=== PATIENT | female | born 1940 | race Caucasian/White ===

== ENCOUNTER 2024-12-27 16:46 | Inpatient (IN) | payer MEDICARE, BC, SELFPAY ==
[2024-12-27] VITALS (8 sets, daily range): BP systolic 140–173; BP diastolic 74–113; BMI 29.1; BMI 28.7
--- NOTE | 2024-12-27 14:45 | ED.GENMED ---
History of Present Illness
<Tia Sandhu PA-C - Last Filed: 12/27/24 23:48>
General
Chief Complaint: Skin Problem
Source: patient
Exam Limitations: none
Time Seen by Provider: 12/27/24 13:06
Nursing documentation reviewed up to this point in time: agreed with
History of Present Illness
History of Present Illness:
Patient is an 84-year-old female with history hypertension and Alzheimer's who presents to the emergency department with daughter for evaluation of swelling and warmth of left lower extremity. Patient unable to contribute much to history given
history of Alzheimer's.
Patient's daughter states that her son, who lives with patient, contacted her today stating that the patient had swelling and redness of her left lower leg. It is unclear how long the symptoms have been present. Patient is relatively sedentary
however has been able to ambulate independently around home.
There is no history of fever or other infectious symptoms. Patient denies any current chest pain or shortness of breath. She denies any numbness/tingling in left lower extremity. She has no known trauma or injury to the area.
Patient lives in a single-family home with her grandson and son-in-law. The daughter does have concerns regarding patient safety at home as her ex- struggles with alcohol use.
Review of Systems
<Tia Sandhu PA-C - Last Filed: 12/27/24 23:48>
Review of Systems
Allergies reviewed?: Yes
All Other Systems: ROS reviewed and negative except as documented in HPI and ROS
Phy Exam
<Tia Sandhu PA-C - Last Filed: 12/27/24 23:48>
Physical Exam
Physical Exam:
Vitals: Hypertensive, otherwise vital signs stable. Afebrile
General: Patient is well appearing, no acute distress
Skin: Warm and dry, no rashes or lesions
Head: Normocephalic, atraumatic
Eyes: Sclera nonicteric. EOMs intact. No nystagmus.
Throat: Protecting airway
Neck: Normal ROM, no cervical spine tenderness, no meningismus
Cardiac: Regular rate and rhythm, no murmurs.
Pulm: Normal respiratory effort. Lungs clear bilaterally
Abdomen: No abdominal tenderness.
Extremities: Edema, warmth, and mild edema of left lower extremity. No focal areas of tenderness. 2+ palpable DP pulse
Neuro: AAOx2. No focal deficits.
Psychiatric: Normal affect.
Course
<Tia Sandhu PA-C - Last Filed: 12/27/24 23:48>
Orders/Labs/Results
Orders:
Orders
12/27/24 Lunch
Regular
At Your Request: Limited Participation
Does patient need a safe tray?: No
12/27/24 12:49
Periph Venous Lwr Ext Left US [US Periph Venous LOWER Ext LT] Urgent
Comment:
Reason For Exam: swelling
12/27/24 14:09
Case Management Consult ONCE
Case Management Consult: VN/Home Care
12/27/24 15:05
Heparin 6,700 units IV NOW STA
12/27/24 15:[address] Non Medication Order As Directed
Physician Order: PTT 6 hours after initial start of Heparin infusion
Above order entered?: Yes
12/27/24 15:13
Complete Blood Count/With Diff Urgent
12/27/24 15:15
Comprehensive Metabolic Panel Urgent
PTT Urgent
Comment: Obtain baseline before beginning heparin infusion if not already collected
Prothrombin Time Urgent
Comment: ADD ON
Heparin 44116 Units/250 ml 25,000 units in 250 ml IV PER PROTOCOL
Weight to be used for heparin protocol in kilograms (kg):: 84.1
Protocol:: DVT/PE
PTT Goal Range to be used:: PTT 73 to 111 seconds
Order type:: Initial
INITIAL Infusion Dose (UNITS/KG/hr) & then follow protocol:: 18 units/kg/hr
Infusion Dose in UNITS/hr & then follow protocol (UNITS/hr):: 1,500
INFUSION RATE in mL/hr & then follow protocol (mL/hr):: 15
For DVT/PE algorithm, re-bolus for low PTT?: Yes
PTT less than or equal to 64 seconds:: Re-bolus 80 units/kg (max 10,000units). Increase by 300 units/hr
(+ 3mL/hr)
PTT 64.1 to 72.9 seconds:: Re-bolus 40 units/kg (max 5,000 units). Increase by 200 units/hr
(+ 2mL/hr)
PTT 73 to 111 seconds:: Target Range. No change in rate.
PTT 111.1 to 130.9 seconds:: Decrease rate by 200 units/hr (- 2 mL/hr)
PTT 131 to 199.9 seconds:: HOLD for 1 hr. Then decrease by 300 units/hr (- 3mL/hr)
PTT greater than or equal to 200 seconds:: HOLD for 2 hrs & Notify Provider. Then decrease by 300 units/hr
(- 3mL/hr)
Lab follow-up:: Each change, PTT q6h until 2 consecutive are therapeutic. Then
PTT daily.
12/27/24 15:35
Heparin 3,400 units IV PRN PRN
Heparin 6,700 units IV PRN PRN
12/27/24 15:56
Vascular Surgery Consult Routine
Consulting Provider: Rick Christensen
Was physician already notified: Yes
Reason for consult: LLE extensive DVT
12/27/24 16:18
Admit/Transfer Patient As Directed
Co-Sign Provider:
Level of Care: Inpatient admission
Assign to:: Telemetry
Physician / Group: Kelly
Diagnosis: Acute DVT
Reason for Telemetry: Arrhythmia
Date to Stop Telemetry: 12/30/24
Time to Stop Telemetry: 11:00
Reason for Hospitalization: Acute DVT
Expected length of stay greater than two midnights?: Yes
ELOS- Estimated Length of Stay in days: 2
I certify the patient meets the requirements for IP care: Yes
PRN Pain Medication Management As Directed
May give lesser potent ordered pain med per pt: Yes
preference::
Protocol:: Medication orders for pain may be administered in a
manner that supports deferring to patient preference
when the pt is:
- Requesting an ordered lesser potent pain medication.
Least to most potent pain medications are defined
as: acetaminophen < NSAID < tramadol < opioids
(morphine, oxycodone, hydromorphone).
- Requesting a lesser dose of the same medication IF
ORDERED.
- Requesting a less intrusive route of administration
if both routes are prescribed by the provider (PO <
IV).
12/27/24 16:19
Code Status As Directed
Resuscitation Status: Do not resuscitate
Reached after discussion with pt or family/Healthcare POA: Yes
DNR Bracelet Application ONCE
12/27/24 16:21
Case Management Consult ONCE
Case Management Consult: VN/Home Care
12/27/24 16:25
Ot Eval And Treat Routine
Pt Eval And Treat Routine
Activity Level: Out of Bed-Early Mobility
12/27/24 16:26
Add On- LAB Urgent
Tests Added?: INR
12/27/24 16:27
EKG [Electrocardiogram (*1)] Stat
Reason for Study: Tachycardia
12/27/24 18:48
Acetaminophen [Tylenol] 650 mg PO Q4HPRN PRN
Bisacodyl [Dulcolax] 10 mg RECTAL [id number] PRN
Docusate W/Senna [Senokot-S] 1 tablet PO BIDPRN PRN
Metoprolol Xl [Toprol Xl] 25 mg PO QPM
Ondansetron Injectable [Zofran] 4 mg IV Q8HPRN PRN
Polyethylene Glycol Powder [Miralax] 17 grams PO DAILYPRN PRN
12/27/24 18:48
Heparin Protocol- PTT Orders As Directed
PTT per Heparin protocol: -Obtain CBC and baseline PTT - if not already collected.
-Obtain PTT 6 hours from start of infusion. Then, every 6 hours until 2 consecutive
PTT's are therapeutic. Then, PTT Daily.
-With each rate change, obtain PTT every 6 hours until 2 consecutive PTT's are
therapeutic. Then, PTT Daily.
Activity As Directed
Activity Level: Out of Bed-Early Mobility
Notify MD As Directed
Notify physician if: PTT is greater than or equal to 200.
Vital Signs As Directed
Frequency: Per unit guidelines
CR Chest Portable - 1 View Routine
Comment:
Reason For Exam: intermittent SOB
Reason Study Needs to be Portable: Other
12/28/24 06:00
Electrocardiogram (*1) IN AM
Reason for Study: Palpitations
TSH Reflex To Free T4 IN AM
12/28/24 08:00
Escitalopram Oxalate [Lexapro] 5 mg PO DAILY
12/29/24 06:00
Complete Blood Count/No Diff Q2D
Comment: notify provider: Platelet count < 130,000 or decrease by 50% from baseline
12/30/24 11:00
DC Protocol for Telemetry ONCE
12/31/24 06:00
Complete Blood Count/No Diff Q2D
Comment: notify provider: Platelet count < 130,000 or decrease by 50% from baseline
01/02/25 06:00
Complete Blood Count/No Diff Q2D
Comment: notify provider: Platelet count < 130,000 or decrease by 50% from baseline
01/04/25 06:00
Complete Blood Count/No Diff Q2D
Comment: notify provider: Platelet count < 130,000 or decrease by 50% from baseline
01/06/25 06:00
Complete Blood Count/No Diff Q2D
Comment: notify provider: Platelet count < 130,000 or decrease by 50% from baseline
01/08/25 06:00
Complete Blood Count/No Diff Q2D
Comment: notify provider: Platelet count < 130,000 or decrease by 50% from baseline
01/10/25 06:00
Complete Blood Count/No Diff Q2D
Comment: notify provider: Platelet count < 130,000 or decrease by 50% from baseline
01/12/25 06:00
Complete Blood Count/No Diff Q2D
Comment: notify provider: Platelet count < 130,000 or decrease by 50% from baseline
Abnormal Lab Results
12/27/24 12/27/24
15:13 15:15
MCHC 32.6 L g/dL
(33.0-37.0)
MPV 10.7 H fL
(7.4-10.4)
Absolute Monos (auto) 0.7 H 10^3/uL
(0.1-0.6)
Monocytes % 12.2 H %
(1.7-9.3)
Carbon Dioxide 31 H mmol/L
(22-30)
Glucose 109 H mg/dl
(70-99)
12/27/24 15:13
12/27/24 15:15
Vital Signs
Pulse: 82
Initial and Last Documented VS:
Initial Vital Signs
Temp Pulse Resp BP Pulse Ox
97.9 F 104 18 167/74 98
12/27/24 12:13 12/27/24 12:13 12/27/24 12:13 12/27/24 12:13 12/27/24 12:13
Last Documented Vital Signs
Temp Pulse Resp BP Pulse Ox
98.1 F 89 18 172/84 96
12/27/24 23:17 12/27/24 23:17 12/27/24 23:17 12/27/24 23:17 12/27/24 23:17
<Chandler Castle, DO - Last Filed: 12/27/24 14:52>
Orders/Labs/Results
Orders:
Orders
12/27/24 Lunch
Regular
At Your Request: Limited Participation
Does patient need a safe tray?: No
12/27/24 12:49
Periph Venous Lwr Ext Left US [US Periph Venous LOWER Ext LT] Urgent
Comment:
Reason For Exam: swelling
12/27/24 14:09
Case Management Consult ONCE
Case Management Consult: VN/Home Care
12/27/24 15:05
Heparin 6,700 units IV NOW STA
12/27/24 15:[address] Non Medication Order As Directed
Physician Order: PTT 6 hours after initial start of Heparin infusion
Above order entered?: Yes
12/27/24 15:13
Complete Blood Count/With Diff Urgent
12/27/24 15:15
Comprehensive Metabolic Panel Urgent
PTT Urgent
Comment: Obtain baseline before beginning heparin infusion if not already collected
Prothrombin Time Urgent
Comment: ADD ON
Heparin 56340 Units/250 ml 25,000 units in 250 ml IV PER PROTOCOL
Weight to be used for heparin protocol in kilograms (kg):: 84.1
Protocol:: DVT/PE
PTT Goal Range to be used:: PTT 73 to 111 seconds
Order type:: Initial
INITIAL Infusion Dose (UNITS/KG/hr) & then follow protocol:: 18 units/kg/hr
Infusion Dose in UNITS/hr & then follow protocol (UNITS/hr):: 1,500
INFUSION RATE in mL/hr & then follow protocol (mL/hr):: 15
For DVT/PE algorithm, re-bolus for low PTT?: Yes
PTT less than or equal to 64 seconds:: Re-bolus 80 units/kg (max 10,000units). Increase by 300 units/hr
(+ 3mL/hr)
PTT 64.1 to 72.9 seconds:: Re-bolus 40 units/kg (max 5,000 units). Increase by 200 units/hr
(+ 2mL/hr)
PTT 73 to 111 seconds:: Target Range. No change in rate.
PTT 111.1 to 130.9 seconds:: Decrease rate by 200 units/hr (- 2 mL/hr)
PTT 131 to 199.9 seconds:: HOLD for 1 hr. Then decrease by 300 units/hr (- 3mL/hr)
PTT greater than or equal to 200 seconds:: HOLD for 2 hrs & Notify Provider. Then decrease by 300 units/hr
(- 3mL/hr)
Lab follow-up:: Each change, PTT q6h until 2 consecutive are therapeutic. Then
PTT daily.
12/27/24 15:35
Heparin 3,400 units IV PRN PRN
Heparin 6,700 units IV PRN PRN
12/27/24 15:56
Vascular Surgery Consult Routine
Consulting Provider: Rick Christensen
Was physician already notified: Yes
Reason for consult: LLE extensive DVT
12/27/24 16:18
Admit/Transfer Patient As Directed
Co-Sign Provider:
Level of Care: Inpatient admission
Assign to:: Telemetry
Physician / Group: Kelly
Diagnosis: Acute DVT
Reason for Telemetry: Arrhythmia
Date to Stop Telemetry: 12/30/24
Time to Stop Telemetry: 11:00
Reason for Hospitalization: Acute DVT
Expected length of stay greater than two midnights?: Yes
ELOS- Estimated Length of Stay in days: 2
I certify the patient meets the requirements for IP care: Yes
PRN Pain Medication Management As Directed
May give lesser potent ordered pain med per pt: Yes
preference::
Protocol:: Medication orders for pain may be administered in a
manner that supports deferring to patient preference
when the pt is:
- Requesting an ordered lesser potent pain medication.
Least to most potent pain medications are defined
as: acetaminophen < NSAID < tramadol < opioids
(morphine, oxycodone, hydromorphone).
- Requesting a lesser dose of the same medication IF
ORDERED.
- Requesting a less intrusive route of administration
if both routes are prescribed by the provider (PO <
IV).
12/27/24 16:19
Code Status As Directed
Resuscitation Status: Do not resuscitate
Reached after discussion with pt or family/Healthcare POA: Yes
DNR Bracelet Application ONCE
12/27/24 16:21
Case Management Consult ONCE
Case Management Consult: VN/Home Care
12/27/24 16:25
Ot Eval And Treat Routine
Pt Eval And Treat Routine
Activity Level: Out of Bed-Early Mobility
12/27/24 16:26
Add On- LAB Urgent
Tests Added?: INR
12/27/24 16:27
EKG [Electrocardiogram (*1)] Stat
Reason for Study: Tachycardia
12/27/24 18:48
Acetaminophen [Tylenol] 650 mg PO Q4HPRN PRN
Bisacodyl [Dulcolax] 10 mg RECTAL [id number] PRN
Docusate W/Senna [Senokot-S] 1 tablet PO BIDPRN PRN
Metoprolol Xl [Toprol Xl] 25 mg PO QPM
Ondansetron Injectable [Zofran] 4 mg IV Q8HPRN PRN
Polyethylene Glycol Powder [Miralax] 17 grams PO DAILYPRN PRN
12/27/24 18:48
Heparin Protocol- PTT Orders As Directed
PTT per Heparin protocol: -Obtain CBC and baseline PTT - if not already collected.
-Obtain PTT 6 hours from start of infusion. Then, every 6 hours until 2 consecutive
PTT's are therapeutic. Then, PTT Daily.
-With each rate change, obtain PTT every 6 hours until 2 consecutive PTT's are
therapeutic. Then, PTT Daily.
Activity As Directed
Activity Level: Out of Bed-Early Mobility
Notify MD As Directed
Notify physician if: PTT is greater than or equal to 200.
Vital Signs As Directed
Frequency: Per unit guidelines
CR Chest Portable - 1 View Routine
Comment:
Reason For Exam: intermittent SOB
Reason Study Needs to be Portable: Other
12/28/24 06:00
Electrocardiogram (*1) IN AM
Reason for Study: Palpitations
TSH Reflex To Free T4 IN AM
12/28/24 08:00
Escitalopram Oxalate [Lexapro] 5 mg PO DAILY
12/29/24 06:00
Complete Blood Count/No Diff Q2D
Comment: notify provider: Platelet count < 130,000 or decrease by 50% from baseline
12/30/24 11:00
DC Protocol for Telemetry ONCE
12/31/24 06:00
Complete Blood Count/No Diff Q2D
Comment: notify provider: Platelet count < 130,000 or decrease by 50% from baseline
01/02/25 06:00
Complete Blood Count/No Diff Q2D
Comment: notify provider: Platelet count < 130,000 or decrease by 50% from baseline
01/04/25 06:00
Complete Blood Count/No Diff Q2D
Comment: notify provider: Platelet count < 130,000 or decrease by 50% from baseline
01/06/25 06:00
Complete Blood Count/No Diff Q2D
Comment: notify provider: Platelet count < 130,000 or decrease by 50% from baseline
01/08/25 06:00
Complete Blood Count/No Diff Q2D
Comment: notify provider: Platelet count < 130,000 or decrease by 50% from baseline
01/10/25 06:00
Complete Blood Count/No Diff Q2D
Comment: notify provider: Platelet count < 130,000 or decrease by 50% from baseline
01/12/25 06:00
Complete Blood Count/No Diff Q2D
Comment: notify provider: Platelet count < 130,000 or decrease by 50% from baseline
Abnormal Lab Results
12/27/24 12/27/24
15:13 15:15
MCHC 32.6 L g/dL
(33.0-37.0)
MPV 10.7 H fL
(7.4-10.4)
Absolute Monos (auto) 0.7 H 10^3/uL
(0.1-0.6)
Monocytes % 12.2 H %
(1.7-9.3)
Carbon Dioxide 31 H mmol/L
(22-30)
Glucose 109 H mg/dl
(70-99)
12/27/24 15:13
12/27/24 15:15
Vital Signs
Initial and Last Documented VS:
Initial Vital Signs
Temp Pulse Resp BP Pulse Ox
97.9 F 104 18 167/74 98
12/27/24 12:13 12/27/24 12:13 12/27/24 12:13 12/27/24 12:13 12/27/24 12:13
Last Documented Vital Signs
Temp Pulse Resp BP Pulse Ox
98.1 F 89 18 172/84 96
12/27/24 23:17 12/27/24 23:17 12/27/24 23:17 12/27/24 23:17 12/27/24 23:17
<Tia Sandhu PA-C - Last Filed: 12/27/24 23:48>
MDM/Problems Addressed
Differential Diagnosis Includes:
Not limited to: DVT, cellulitis, lymphedema, venous stasis, traumatic injury, etc.
MDM/Problems Addressed:
84-year-old female with left lower extremity pain/swelling. History of Alzheimer�s and poor historian � unclear duration of symptoms. No chest pain or shortness of breath. No fevers or other infectious symptoms.
Vitals stable.
On exam, patient appears in no distress. There is edema, warmth and minimal erythema of left lower extremity. Palpable distal pulses. Cardio/pulmonary exam unremarkable.
Differential includes DVT vs cellulitis. Will obtain basic lab work and ultrasound of left lower extremity.
Update: left lower extremity ultrasound reveals extensive DVT. There are also some safety concerns with patient at home, including fall risk. Given degree of clot burden, will admit patient for IV heparin. She may need CM consult pending discharge.
Patient admitted to hospitalist service in stable condition.
Chronic conditions affecting care:
Hypertension
Acute Exacerbation and/or Progression of Chronic Illness:
Acutely hypertensive
<Tia Sandhu PA-C - Last Filed: 12/27/24 23:48>
*Radiology
Radiology exam reviewed: radiology read reviewed
*Pulse Oximetry
SaO2: 98
Oxygen Mode of Delivery: Room air
Patient hypoxic: no
*EKG
Interpreted by ED Provider?: NA
*Mercury Recoverer Interpretation
Rate: Mercury Recoverer- N/A
*Critical Care Note
Total Time (30-74mins, 75-104mins- exclusive of procedures): 30
comment:
Critical care statement: A total of 30 minutes of critical care time was provided for this patient. This includes management of unstable vital signs, evaluation of the patient at bedside, reviewing the patient's pertinent medical records, discussion
with consultants, review of old EKGs and review of pertinent medical records. This time with separate from time utilized to perform the aforementioned documented procedures
<Tia Sandhu PA-C - Last Filed: 12/27/24 23:48>
Patient Management
Discussion with other providers: Hospitalist and Radiologist
ED Attending Note
<Tia Sandhu PA-C - Last Filed: 12/27/24 23:48>
-
Portions of this chart may have been created with voice recognition software.� Occasional wrong word or��sound alike� substitutions may have occurred due to the inherent limitations of voice recognition software.
<Chandler Castle DO - Last Filed: 12/27/24 14:52>
ED Attending Note
Patient seen and examined by attending physician: Yes
I performed the substantive portion of visit, reviewed & personally made and approve the management plan that is documented in note by myself or ONELIA.: Yes
ED Attending Note:
I have seen and evaluated the patient with a [id number] encounter. I have spoken to the advance practicer provider and involved in the medical history, the physical exam, medical decision making.
Evaluation and management service: agree unless noted differently below.
Results interpretation: agree unless noted differently below.
Focused HPI: 84-year-old female presenting with left leg swelling and pain. Is not certain when symptoms started. She does have dementia and is a poor historian
Physical exam: Sitting in bed comfortably. Left leg is mildly erythematous and edematous. Distal pulses intact
Medical Decision Making: Radiology indicating that there is significant amount of clot burden in the left leg. Patient is a fall risk and is a poor historian. Will start heparin
Discharge Plan
Departure
Patient Disposition: Admit
Date of Disposition: 12/27/24
Time of Disposition: 15:47
Presentation/result/management discussed w/ accepting MD/DO: Hospitalist
Discharge Problem:
Acute deep vein thrombosis (DVT) of left lower extremity
Interventions
Interventions:
*Risk Screen - Suicide Last Done: 12/27/24 22:28
*General Assessment Last Done: 12/27/24 15:16
*Neglect/Abuse Screening Last Done: 12/27/24 15:16
*ED- Fall Risk Assessment Last Done: 12/27/24 15:16
*ED COVID-19 Vaccine History Last Done: 12/27/24 22:28
*ED Influenza Vaccine History Last Done: 12/27/24 15:16
*Nursing Disposition Last Done: 12/27/24 18:37
ED-Skin Assessment Last Done: 12/27/24 15:00
Discharge Date and Time
Discharge Date/Time: 12/27/24 18:38
--- NOTE | 2024-12-27 14:46 | CM ---
Patient seen bedside w/ daughter in ED. Initial assessment completed. Came to ED for skin problem.
Patient resides w/ her grandson and ex son in law in a 5STH, 6 steps to enter from the outside. No steps from the garage entrance. Patient is independent w/ ambulation, no device required. Independent w/ ADLs and personal care. Denies SNF/HC hx.
Address, point of contact and insurance verified
PCP: Rodrigo Bush
Pharmacy: [facility]
Daughter stated she is interested in home PT for patient for her shoulder. Daughter stated she was looking into [facility] and was suppose to get a call back from them this week. CM explained home PT is usually a few times a week and insurance
typically covers home care services but unsure if patient will have a co pay or has limited visits per her insurance plan. Daughter understood this and agreeable to a referral to [facility].
Referral sent to [facility] in [facility]
Plan: Home w/ [facility]
[2024-12-27 15:26] LABS: Hematocrit 45.7 % (37.0-47.0); Hemoglobin 14.9 g/dL (12.0-16.0); Mean Corp Hgb Conc. 32.6 g/dL (33.0-37.0); Mean Corpuscular Volume 89.1 fL (81.0-99.0); Nucleated Red Blood Cells % 0 %; Platelet Count 201 10^3/uL (130-400); Red Cell Dist. Width 14.3 % (11.5-14.5)
[2024-12-27 15:38] LABS: APTT 24.4 Sec (23.4-35.0)
[2024-12-27] MEDS: HEPARIN 6700 UNITS IV (15:48)
[2024-12-27] MEDS: HEPARIN 25000 UNITS/250 ML IV (15:49)
[2024-12-27 15:50] LABS: ALT (SGPT) 18 U/L (0-35); AST (SGOT) 29 U/L (14-36); Albumin 4.1 g/dl (3.5-5.0); Alkaline Phosphatase 92 U/L (38-126); Blood Urea Nitrogen 9 mg/dl (7-17); Calcium 9.6 mg/dl (8.4-10.2); Carbon Dioxide 31 mmol/L (22-30); Chloride 102 mmol/L (98-107); Estimated Creatinine Clearance 75 ml/min; Glucose 109 mg/dl (70-99); Potassium 4.0 mmol/L (3.5-5.1); Sodium 140 mmol/L (135-145); Total Protein 7.0 g/dl (6.3-8.2); eGFR > 60.00
--- NOTE | 2024-12-27 16:27 | HPS.HSE ---
Family Physician
-
Family Physician: Rodrigo Bush MD
Chief Complaint
-
LLE swelling
History of Present Illness
84yo F with PMHx of anxiety, palpitations, Alzheimers dementia with significant memory impairment broguht by her daughter (BORIS) with LLE swelling and warmth, found acute extensive DVT. Patient herself does not remember for how long she had it. No
recent travel noted, but patient is also mostly sedentary. Daughter also concerned for home services such as [facility], PT/OT.
Medical History
Past Medical History
Past Medical History: Reports Other
Additional Past Medical History:
see HPI
Past Surgical History: Reports None
Social History
Tobacco: Non-smoker
Alcohol: None
Drug: None
Family History
Family History: Not pertinent
Allergies / Home Medications
Allergies reflects when Allergies were last updated in [employer].
Home Medications with original date entered in [employer]
Allergy/Medication List:
Allergies
Allergy/AdvReac Type Severity Reaction Status Date / Time
No Known Allergies Allergy Unverified 12/27/24 12:15
Home Medications
escitalopram oxalate 5 mg tablet (Lexapro) 5 mg PO DAILY Mental Health/Anxiety 12/27/24
metoprolol succinate 25 mg tablet,extended release 24 hr (Toprol XL) 25 mg PO QPM Blood Pressure 12/27/24
Review of Systems
-
History Source: Patient
A 12 point ROS was completed and negative except as noted: Yes
Musculoskeletal: Reports See HPI
Physical Exam
Vital Signs
Vital Signs
Temp Pulse Resp BP Pulse Ox
97.9 F 82 18 155/82 98
12/27/24 12:13 12/27/24 15:53 12/27/24 12:13 12/27/24 15:01 12/27/24 15:01
Physical Exam
General: No Apparent Distress, Comfortable and Conversant
HEENT: NormoCephalic, Anicteric and Moist mucous membranes
Respiratory: Clear; No Wheezes or Crackles
Cardiac: S1/S2 and Irregular Rhythm; No Murmur
GI: Soft, Non Tender and Non Distended
Musculoskeletal: No Clubbing, No Cyanosis and Edema, Left Lower Extremity
Skin: Warm (LLE); No Rash or Jaundice
Neuro: Awake, Alert, Oriented, AO x 3 and Other (significant memory impairment )
Psych: Calm and Apparent Dementia
Laboratory Results
-
12/27/24 15:13
12/27/24 15:15
Laboratory Results
APTT 24.4 Sec (23.4-35.0) 12/27/24 15:15
Total Bilirubin 0.8 mg/dl (0.2-1.3) 12/27/24 15:15
AST 29 U/L (14-36) 12/27/24 15:15
ALT 18 U/L (0-35) 12/27/24 15:15
Alkaline Phosphatase 92 U/L (38-126) 12/27/24 15:15
Data Reviewed
-
Ultrasound: Report Reviewed by me
Lab Data: Labs Reviewed by me
Impression/Plan
-
A/P:
#Acute unprovoked LLE DVT
extensive contiguous occlusive deep venous thrombosis involving the left common femoral vein, proximal profunda femoris, femoral, popliteal, posterior tibial, and peroneal veins
No SOB
Heparin drip pending VascSx consult
Eventual DOAC
Age appropriate cancer screening as outpatient
Thrombophilic workup as outpatient
check INR on admission
#Poor ambulatory status
PT/OT
CM for home services
#Irregular HR
EKG, telemetry
#Anxiety d/o
#Esential HTN
cont home meds
DVT ppxhep drip
DNR/DNI as discussed in details with daughter (POA) bedside
I have spent at least 76min reviewing chart, test results, communication with consultants and providing direct patient care
--- NOTE | 2024-12-27 16:46 | CON.VAS ---
Addendum entered and electronically signed by Rick Christensen MD 12/28/24 07:49:
Note I spoke to the patient's daughter Elisabeth Reyes over the phone to relay recommendations for anticoagulation alone. I discussed CT scan report had some findings of pulmonary nodules, but will defer this to hospitalist team as this is outside of
my area specialty (will communicate to them). Note also that I did not include below my review of the CT scan demonstrated no finding of May-Thurner as an inciting cause, the left iliac vein is widely patent.
Addendum entered and electronically signed by Rick Christensen MD 12/28/24 07:43:
Seen and examined with MARYJANE Valencia. Agree with findings as noted below. 84-year-old female with history of Alzheimer's dementia who presented with left lower extremity swelling and redness. Duration slightly unclear. Per reports she was ambulating
without any difficulty.
On exam/she is awake and alert. Breathing is unlabored. Abdomen is soft. Left thigh and calf are very soft. Maybe mild edema compared to right side. Compartments are all soft. No phlegmasia. Feet are warm.
Pertinent imaging all reviewed including ultrasound and CT venogram. Extensive thrombus in the left lower extremity veins. Common femoral vein with thrombus. CT venogram demonstrates common femoral vein thrombus more centrally located with what
appears to be flow peripherally around it. No evidence of iliac vein thrombosis.
Plan/ Acute left lower extremity DVT. No evidence of iliac vein involvement. Given minimal symptoms, no iliac vein involvement, age of 84, Alzheimer's dementia, no indication for any intervention at this time. Continue anticoagulation. Okay to
transition to oral anticoagulation. No indication to follow-up in our office regarding this as there is nothing surgical we would offer at this time. She can follow-up with hematology if needed or with her primary care team to determine duration
of anticoagulation.
Original Note:
Consultation
Consultation Request
Date/Time Consultation Performed: 12/27/2024 1600
Requesting Provider: Hospitalist
Performing Provider: Corin Valencia, MARYJANE-C for Rick Christensen M.D.
Reason for Consultation: Left extremity swelling/DVT
Medical History
-
Chief Complaint: Left extremity swelling/DVT
History of Present Illness:
This is an 84-year-old female with significant past medical history for anxiety, hypertension, palpitations, and Alzheimer's who presents to [facility] by means of her daughter for reports of left lower extremity swelling. Patient is a poor
historian who cannot determine how long the swelling has occurred but endorses that it is not impacted her activities of daily living. She denies pain, numbness, and tingling of left lower extremity. Daughter is also unsure of how long swelling
has been present. Patient endorses that she ambulates frequently throughout the house but daughter insists that she lives a sedentary lifestyle. Patient and daughter deny prior history of DVT in patient or familial. Patient and daughter deny
prior vascular surgical intervention.
Past Medical History
Past Medical History: HTN, Psychiatric (Anxiety) and Other (Palpitations, Alzheimer's dementia)
Social History
Tobacco: Non-Smoker
Alcohol: None
Drug: None
Living: With Family
Allergies / Home Medications
Allergy/AdvReac Type Severity Reaction Status Date / Time
No Known Allergies Allergy Unverified 12/27/24 12:15
�Medication �Instructions �Recorded �Confirmed �Type
escitalopram oxalate 5 mg tablet 5 mg PO DAILY Mental Health/Anxiety 12/27/24 12/27/24 History
(Lexapro)
metoprolol succinate 25 mg 25 mg PO QPM Blood Pressure 12/27/24 12/27/24 History
tablet,extended release 24 hr
(Toprol XL)
Review of Systems
-
Unable to obtain full review of systems at this time due to: Dementia
History Source: Patient and Family
Constitutional: Reports No Symptoms
EENT: Reports No Symptoms
Respiratory: Reports No Symptoms
Cardiac: Reports No Symptoms
Vascular: Reports Other (Left lower extremity swelling unsure of how long it has been present)
Abdomen/GI: Reports No Symptoms
: Reports No Symptoms
Musculoskeletal: Reports No Symptoms
Skin: Reports No Symptoms
Neurological: Reports No Symptoms
Endocrine: Reports No Symptoms
Physical Exam
Vital Signs
Temp Pulse Resp BP Pulse Ox
97.9 F 82 18 155/82 98
12/27/24 12:13 12/27/24 15:53 12/27/24 12:13 12/27/24 15:01 12/27/24 15:01
Lab Results
12/27/24 15:13
12/27/24 15:15
Physical Exam
General: No Apparent Distress
HEENT: Normocephalic, Anicteric and Atraumatic
Respiratory: Non Labored Respirations
Cardiac: Negative JVD
GI: Soft, Non Tender and Non Distended
Musculoskeletal: Edema (+2 left lower extremity edema)
Skin: Warm
Neuro: Awake, Alert and Oriented (Oriented to only self)
Psych: Calm
Pulses: Bilateral Dorsalis Pedis: +1
Assessment / Plan
-
Assessment: 84-year-old female brought in by daughter as grandson reported noting increased left lower extremity swelling, ultrasound confirmed extensive deep venous thrombosis of the left lower extremity involving common femoral vein, proximal
profunda femoris, femoral, popliteal, posterior tibial, and peroneal.
Plan:
Will obtain CT venogram to determine if clot burden extends into iliac vein or IVC, pending on results of CT venogram will then provide surgical recommendations.
Agree with initiation of anticoagulation heparin infusion
Would recommend compression via Zay wrap of left lower extremity to decrease swelling
Above plan reviewed with on-call attending Dr. Rick Christensen M.D. who agrees
[2024-12-27 17:26] LABS: INR 1.03; PT 14.0 Sec (11.4-14.6)
[2024-12-27] MEDS: TOPROL XL 25 MG PO (20:40)
[2024-12-27 22:32] LABS: APTT > 200 Sec (23.4-35.0)
[2024-12-28 03:37] VITALS: BP 146/106
--- NOTE | 2024-12-28 06:45 | W.PN.UPDATE ---
Update Note
Progress Note Update
EKG this morning shows afib (controlled). No documented hx. On heparin gtt for DVT
[2024-12-28 06:58] LABS: APTT 124.1 Sec (23.4-35.0)
[2024-12-28 07:48] VITALS: BP 143/76
[2024-12-28] MEDS: LEXAPRO 5 MG PO (08:20)
[2024-12-28] MEDS: DESENEX/MITRAZOL/ZEASORB 1 APPLIC TOPICAL (08:20)
--- NOTE | 2024-12-28 09:19 | W.PN.HOSP.TC ---
Addendum entered and electronically signed by Shaheen Mendoza MD 12/28/24 13:22:
dont use billing under this note, use discharge billing instead
Original Note:
Today's Communication/Plan
-
cardio consult
pulm consult
switch to Eliquis
Enema and laxatives
Assessment / Plan
Assessment / Plan
84yo F with PMHx of anxiety, palpitations, Alzheimers dementia with significant memory impairment broguht by her daughter (BORIS) with LLE swelling and warmth, found acute extensive DVT. Patient herself does not remember for how long she had it. No
recent travel noted, but patient is also mostly sedentary. Daughter also concerned for home services such as [employer]PER[employer], PT/OT.
CT venogram ordered by [facility]asc[facility]: no need for intervention. Accidental findings of pulmonary nodules
A/P:
A/P:
#Acute unprovoked LLE DVT
extensive contiguous occlusive deep venous thrombosis involving the left common femoral vein, proximal profunda femoris, femoral, popliteal, posterior tibial, and peroneal veins
No SOB
Heparin drip completed
switch to DOAC
Age appropriate cancer screening as outpatient
Thrombophilic workup as outpatient
#Poor ambulatory status
PT/OT
CM for home services
#New onset afib
telemetry
controlled on Metoprolol
Cardio consult
Echo
#Pulmonary nodules
patient not a smoker
posterior left lower lobe there is a 4.4 mm nodule in the posterior medial left lower lobe, and a 3 mm nodule in the posterolateral left lower lobe
posterior right costophrenic angle there is a pleural-based masslike opacity measuring 13 mm - pulm consult
#Anxiety d/o
#Esential HTN
cont home meds
#Moderate hiatal hernia
asymptomatic
#Fecal impaction with constipation
laxatives
Enema
DVT ppxhep drip
DNR/DNI as discussed in details with daughter (POA) bedside
I have spent at least 76min reviewing chart, test results, communication with consultants and providing direct patient care
Anticipated Discharge: Within 24 hours
Subjective/Interval History
-
Date of Service: December 28, 2024
Objective Data
-
Labs:
Laboratory Results
12/27/24 12/27/24 12/28/24
21:49 21:56 06:35
APTT Cancelled > 200 H* 124.1 H
12/28/24
14:30
APTT Pending
Vital Signs:
Vital Signs
Temp Pulse Resp BP Pulse Ox
98.8 F 74 18 143/76 96
12/28/24 07:48 12/28/24 07:48 12/28/24 07:48 12/28/24 07:48 12/28/24 07:48
Review of Systems
-
History Source: Patient
All other systems: Reviewed and negative
Physical Exam
-
General: No Apparent Distress
HEENT: Normocephalic
Respiratory: Clear to Auscultation
Cardiac: Irregular Rhythm
GI: Soft, Nontender and Nondistended
Neuro: Awake, Alert and Oriented (not to time)
Psych: Calm and Apparent Dementia
--- NOTE | 2024-12-28 09:59 | CON.PUL ---
Consultation
Consultation Request
Date/Time Consultation Requested: 12/28/2024
Date/Time Consultation Performed: 12/28/2024
Medical History
-
Chief Complaint: Incidental lung nodule
History of Present Illness:
Patient is a very pleasant 84-year-old female who presented to the hospital for left lower extremity swelling and warmth. Workup included new diagnosis of acute extensive DVT. Patient denies any recent travel or hospitalization. Preliminary it
was felt that patient has unprovoked VTE event. She was treated with heparin and then transition to Eliquis.
Patient had a CT abdomen pelvis performed which showed an incidental finding of a pleural-based 13 mm nodule on the right side and a 4.4 mm nodule on the left lower lobe. Additional 3 mm nodule noted in the posterior lateral left lower lobe.
Pulmonary consultation was requested for further input.
Patient has never smoked except for briefly when she was around 15. No marijuana use or vaping. No occupational exposure reported. Patient reports that she was born in [place] and lived early years in [place] before moving to [place]. She is
not aware of any exposure to histoplasmosis or a known lung nodule before. No reported weight loss or change in appetite. No cough, wheezing, shortness of breath or pleuritic discomfort. No reported hemoptysis. No prior known history of lung
disease.
Patient denies any secondhand exposure also does have a dog at home. No exposure to birds. Patient worked in [employer]. No occupational exposure reported.
Past Medical History
Past Medical History: Reports Other
Additional Past Medical History:
see HPI
Past Surgical History: Reports None
Social History
Tobacco: Non-smoker
Alcohol: None
Drug: None
Family History
Family History: Not pertinent
Allergies / Home Medications
Allergies
Allergy/AdvReac Type Severity Reaction Status Date / Time
No Known Allergies Allergy Unverified 12/27/24 12:15
Home Medications
�Medication �Instructions �Recorded �Confirmed �Last Taken �Type
escitalopram oxalate 5 mg tablet 5 mg PO DAILY Mental Health/Anxiety 12/27/24 12/27/24 12/27/24 History
(Lexapro)
metoprolol succinate 25 mg 25 mg PO QPM Blood Pressure 12/27/24 12/27/24 12/26/24 History
tablet,extended release 24 hr
(Toprol XL)
Review of Systems
-
Hematologic/Lymphatic: Other (All 14 systems reviewed and negative except as stated above in the history of present illness.)
Vitals / Labs / Diagnostic Testing
Vital Signs
Temp Pulse Resp BP Pulse Ox
98.8 F 74 18 143/76 96
12/28/24 07:48 12/28/24 07:48 12/28/24 07:48 12/28/24 07:48 12/28/24 07:48
Lab Data
12/27/24 15:13
12/27/24 15:15
Laboratory Results
12/27/24 12/27/24 12/27/24
15:15 21:49 21:56
PT 14.0
INR 1.03
APTT 24.4 Cancelled > 200 H*
12/28/24
06:35
PT
INR
APTT 124.1 H
Diagnostic Testing:
Physical Exam
-
HEENT: Normocephalic
Cardiovascular: S1/S2 and Peripheral Edema (Left lower extremity 1+ edema)
Respiratory: Clear
GI: Soft and Non Distended
Neurology: Alert
Skin: Warm
General: Comfortable
Assessment
-
#1. Pulmonary nodules.
- Incidentally found on limited view of lungs on CT abdomen pelvis. Unclear etiology. Patient is overall at low risk of lung cancer, no prior history of smoking.
- Patient will need additional workup including CT chest dedicated to review if she has other parenchymal abnormality in the upper part of lungs.
- Will pursue additional workup as outpatient. Briefly discussed with patient that she might need a PET scan, NODIFY testing, serial imaging and possibly biopsy depending upon clinical course and the findings on a dedicated CT chest.
- Additional workup as outpatient, patient can be discharged home from pulmonary standpoint.
- Follow-up information added to discharge section
Other medical diagnoses:
- Left lower extremity DVT, currently on Eliquis, appears to be an unprovoked event
- History of atrial fibrillation
- Hypertension
- Hiatal hernia
- Anxiety disorder
- ? Cognitive deficit
Total time spent on this consultation/encounter __65__ minutes which includes review of history, physical exam, medications, laboratory data, personal review of imaging, extensive review of outpatient records, discussion with care team and
respiratory therapy.
Data:
ECHO 11/2024: 1. Normal left ventricular systolic function; LVEF 55-60% by visual estimate.
2. Right ventricular size and systolic function are within normal limits.
3. No significant valvular pathology.
4. No prior study for comparison.
Chest X ray 11/2024: No congestive heart failure or pneumonia.
Patient slightly rotated to the right. Mild deviation of the trachea to the right likely accentuated by patient rotation as well as slight prominence of the aortic arch.
CT A/P 11/2024: No inferior vena cava, common iliac, or external iliac thrombus. Filling defect within the left common femoral vein, consistent with thrombus/DVT.
Rectal fecal impaction.
Incidental pulmonary nodules, as described measuring up to 13 mm. Recommend follow-up in 3-6 months, or consider PET CT examination.
Venous US 11/2024: Extensive deep venous thrombosis of the left lower extremity as described.
[2024-12-28] MEDS: ELIQUIS 10 MG PO (10:31)
[2024-12-28] MEDS: MIRALAX 17 GRAMS PO (10:32)
--- NOTE | 2024-12-28 10:55 | CON.CAR ---
Addendum entered and electronically signed by Rodrigo Gambino MD 12/28/24 12:39:
Transthoracic echocardiogram 12/28/2024 reviewed showing normal biventricular function no significant valve disease
Stable for discharge from my perspective. We will sign off, please recall as needed.
Outpatient cardiology follow-up to be arranged.
Addendum entered and electronically signed by Rodrigo Gambino MD 12/28/24 11:57:
I saw and examined the patient.
The Aquatic Facility Manager's note was reviewed and I agree with the note.
Comment: Briefly, 84-year-old woman past medical history of dementia who presented for evaluation of lower extremity swelling and was found to have left lower extremity DVT. Initial ECG here shows atrial fibrillation which is a new diagnosis and
cardiology was consulted for further evaluation and management.
Patient seems to be asymptomatic in atrial fibrillation and is not reporting any palpitations to me
No evidence of decompensated heart failure based on history or physical exam
By review of telemetry she is relatively well rate controlled on current dose of metoprolol, would continue
Started on Eliquis given acute DVT. Would continue for risk reduction of cardioembolic stroke.
For completeness check transthoracic echocardiogram. If this is unremarkable would not recommend any further inpatient cardiology workup.
Original Note:
Consultation
Consultation Request
Date/Time Consultation Performed: 12/28/24
Requesting Provider: Dr. Mendoza
Performing Provider: Emma Clark PA-C for Dr. Gambino
Reason for Consultation: afib
Medical History
-
Chief Complaint: LLE edema
History of Present Illness:
Patient is an 84-year-old female with past medical history of dementia, anxiety, hypertension, palpitations who presented to [facility] due to left lower extremity swelling and warmth noted over the last several months. Was found by imaging to have
acute extensive left lower extremity DVT. Also noted to have atrial fibrillation, which appears to be new diagnosis for patient. She does not recall cardiac issues in the past to her knowledge. She does not feel palpitations, chest pain,
shortness of breath. No known thyroid issues, supplement use, alcohol or caffeine use. Cardiology consulted for evaluation.
PMH:
HTN
Palpitations
Dementia
Anxiety
Past Medical History
Past Medical History: Other (in HPI)
Social History
Tobacco: Non-Smoker
Alcohol: None
Living: With Family
Employment: Retired
Family History
Family History: Reviewed & Not Pertinent
Allergies / Home Medications
Allergy/AdvReac Type Severity Reaction Status Date / Time
No Known Allergies Allergy Unverified 12/27/24 12:15
�Medication �Instructions �Recorded �Confirmed �Type
escitalopram oxalate 5 mg tablet 5 mg PO DAILY Mental Health/Anxiety 12/27/24 12/27/24 History
(Lexapro)
metoprolol succinate 25 mg 25 mg PO QPM Blood Pressure 12/27/24 12/27/24 History
tablet,extended release 24 hr
(Toprol XL)
Review of Systems
-
History Source: Patient
All other systems: Negative unless noted
Physical Exam
Vital Signs
Temp Pulse Resp BP Pulse Ox
98.8 F 74 18 143/76 96
12/28/24 07:48 12/28/24 07:48 12/28/24 07:48 12/28/24 07:48 12/28/24 07:48
Lab Results
12/27/24 15:13
12/27/24 15:15
Physical Exam
General: No Apparent Distress and Comfortable
HEENT: Normocephalic, Anicteric and Moist Mucous Membranes
Respiratory: Clear and Non Labored Respirations
Cardiac: S1/S2 and Irregular Rhythm
GI: Soft, Non Tender, Non Distended and Normal Bowel Sounds
Musculoskeletal: No Clubbing, No Cyanosis and Edema (2+ of LLE. aracelis wrap in place)
Skin: Warm and Dry
Neuro: Awake, Alert and Oriented (to self, place)
Impression / Plan
-
Primary Historiographer: none prior to admission
Assessment:
Presentation with LLE edema, warmth
Acute extensive LLE DVT
Atrial fibrillation, new diagnosis of unclear duration
HTN
History of Palpitations
Dementia
Anxiety
Pulmonary nodules noted on CT scan
DNR CODE STATUS
ECHO 12/28/24: pending
Plan:
- Patient presented with left lower extremity edema and warmth and found to have acute extensive left lower extremity DVT by imaging. Was initially started on IV heparin and has been transition to Eliquis.
- Cardiology consulted as also noted to be in atrial fibrillation, new diagnosis of unclear duration. Patient essentially asymptomatic
- Would plan for rate control strategy of A-fib at present. Heart rates presently controlled on review of telemetry on Toprol, continue. Can uptitrate as needed for improved rate control
- [id number] score of 3-4 for age, female, hypertension. Already initiated on Eliquis at DVT dosing
- Check echo
- TSH within normal limits
- Chest x-ray without evidence of CHF or pneumonia
- Will arrange outpatient cardiac follow-up
- Discussed with nursing
- called to update patient's daughter Elisabeth, via telephone. no answer, LMOM.
Data Reviewed
-
EKG: Tracing Personally Visualized and interpreted
Radiology: Report Reviewed by me
CT Scan: Report Reviewed by me
Ultrasound: Report Reviewed by me
Labs: Labs Reviewed by me
Old Records: Reviewed
--- NOTE | 2024-12-28 11:37 | W.PN.UPDATE ---
Update Note
Progress Note Update
spent at least 30min communicating to daughter and then grandson over the phone providing instructions on further mgmt and follow up. Will also provide written referrals. Son verbalized understanding of the instructions
[2024-12-28 11:41] VITALS: BP 118/72
--- NOTE | 2024-12-28 11:41 | CM ---
Chart reviewed. Per hospitalist, patient possibly will d/c today
PT/OT pending
Eliquis coverage checked. Patient has rx plan through [employer]. Patient has co pay of $112.20 per pharmacist at [facility].
[facility] accepted referral for home services
Plan: Home w/ [facility]
--- NOTE | 2024-12-28 12:15 | W.DCSUMMARY ---
Discharge Summary
Discharge Data
Date of Admission: 12/27/24
Date of Discharge: 12/28/24
-
Pending Results: No
Hospital Course
84yo F with PMHx of anxiety, palpitations, Alzheimers dementia with significant memory impairment broguht by her daughter (BORIS) with LLE swelling and warmth, found acute extensive DVT. Patient herself does not remember for how long she had it. No
recent travel noted, but patient is also mostly sedentary. Daughter also concerned for home services such as [employer] WORK[employer] FOR[employer], PT/OT.
CT venogram ordered by [facility]: no need for intervention. Accidental findings of pulmonary nodules and Afib. Started on ELiquis. Echo done by card. HR well controlled. CM checked copay for Eliquis $112 - family agreeable to pay. Medcially stable to
be d/c home. Home services to be provided by CM.
I have spent at least 76min reviewing chart, test results, communication with consultants and providing direct patient care
Patient was managed for
#Acute unprovoked LLE DVT
#Poor ambulatory status
#New onset afib
#Pulmonary nodules
#Anxiety d/o
#Esential HTN
#Moderate hiatal hernia
#Fecal impaction with constipation
Discharge Plan
-
Patient Disposition: Home with Home Care
Discharge Diagnosis/Procedures: Acute DVT
Diet: Low Cholesterol
Referrals:
Domingo Hawkins DO [Active, Hematology / Oncology] - in four to six weeks
Referral Note: Thrombophilia workup
Rodrigo Bush MD [Family Provider, Internal Medicine]
Clarence Dhaliwal MD [Active, Pulmonary Medicine] - in four to six weeks
Referral Note: repeated CT chest for pulmonary nodules
Rodrigo Gambino MD [Active, Cardiology] - 02/02/25 2:20 pm
Referral Note: You have a cardiology follow-up appointment at the [facility] office in [facility], [address]. Please call with questions
Prescriptions:
New
Eliquis 5 mg tablet
See Rx Instructions .ROUTE .COMPLEX Qty: 71 0RF
Rx Instructions:
take 10mg BID for 13 doses, then 5mg BID until told to stop by the doctor
polyethylene glycol 3350 17 gram Powder In Packet
17 g PO DAILYPRN PRN (Reason: Constipation) Qty: 30 0RF
Continued
metoprolol succinate [Toprol XL] 25 mg Tablet Extended Release 24 Hr
25 mg PO QPM
escitalopram oxalate [Lexapro] 5 mg Tablet
5 mg PO DAILY
Discharge Orders:
Discharge Patient (As Directed); Ordered 12/28/24
Ordered By: Shaheen Mendoza
Discharge Date and Time
Print Language: GABONESE
[2024-12-28 12:57] VITALS: BP 114/69; PULSE 93; O2SAT 98
[2024-12-28 12:58] VITALS: BP 114/69; PULSE 88; O2SAT 97
== END 2024-12-28 14:54 | disposition home health service (06) | DRG 300 ==
LOC: 4 EAST ACU 16:46
PROVIDERS: Physician Assistant; ADMITTING PHYSICIAN Internal Medicine; CONSULT PHYSICIAN Internal Medicine; EMERGENCY PHYSICIAN Student in an Organized Health Care Education/Training Program; FAMILY PHYSICIAN Internal Medicine; OTHER PHYSICIAN Internal Medicine Cardiovascular Disease; OTHER PHYSICIAN Surgery Vascular Surgery
DX: I82.412 Acute embolism and thrombosis of left femoral vein (principal); F02.84 Dementia in other diseases classified elsewhere, unspecified severity, with anxiety; Z66 Do not resuscitate; I10 Essential (primary) hypertension; I48.91 Unspecified atrial fibrillation; K56.41 Fecal impaction; K44.9 Diaphragmatic hernia without obstruction or gangrene; Z79.01 Long term (current) use of anticoagulants; Z79.899 Other long term (current) drug therapy
CPT/HCPCS: 71045; 74177; 80053; 84443; 85025; 85610; 85730; 93005; 93306; 93971; 96374; 96376; 97163; 97167; 99291; Q9967

== ENCOUNTER → 2025-02-12 11:28 | Outpatient (REF) | payer BC, SELFPAY | LOC: HWRAD 11:28 | PROVIDERS: ATTENDING PHYSICIAN Nurse Practitioner Adult Health | DX: R91.8 Other nonspecific abnormal finding of lung field (principal) | CPT/HCPCS: 71250 ==